=== PATIENT | female | born 1970 | race Caucasian/White ===

== ENCOUNTER 2022-06-23 12:47 | Emergency (ER) | payer BC ==
[2022-06-23 12:51] VITALS: PULSE 82; TEMP 98.5; BMI 23.3
[2022-06-23] MEDS ORDERED: ONDANSETRON 4 MG/2 ML VIAL IVPUSH ONE (13:35)
[2022-06-23] MEDS ORDERED: ACETAMINOPHEN 1000 MG/100 ML BAG IVPB ONE (13:35)
[2022-06-23] MEDS ORDERED: SODIUM CHLORIDE 1,000 ML IV STA (13:35)
[2022-06-23] MEDS ORDERED: ACETAMINOPHEN INJECTION 100 ML IVPB ONE (13:40)
[2022-06-23] MEDS ORDERED: ONDANSETRON 4 MG/2 ML VIAL ONE (13:40)
[2022-06-23] MEDS ORDERED: KETOROLAC TROMETHAMINE 30 MG/1 ML VIAL IM ONE ×2 (14:28→14:42)
[2022-06-23 14:29] LABS: BASO % 0.9 % (0-2.0); EOS % 0.9 % (0-4.5); HEMATOCRIT 38.9 % (32.4-45.2); HEMOGLOBIN 13.6 GM/dL (10.7-15.3); LYMPH % 26.1 % (8-40); MCH 30.3 pg (25.7-33.7); MEAN CELL VOLUME 86.4 fl (80-96); MEAN PLT VOLUME 9.8 fl (7.5-11.1); MONO % 6.8 % (3.8-10.2); NEUT % 65.3 % (42.8-82.8); PLATELET COUNT 254 10^3/uL (134-434); RDW 12.6 % (11.6-15.6); WHITE BLOOD COUNT 4.3 K/mm3 (4.0-10.0)
[2022-06-23] MEDS ORDERED: METOCLOPRAMIDE HCL INJECTION 10 MG/2 ML VIAL IVPUSH ONE (14:29)
[2022-06-23] MEDS ORDERED: KETOROLAC TROMETHAMINE 30 MG/1 ML VIAL IVPUSH ONE (14:33)
[2022-06-23 14:35] LABS: INR 0.94 (0.83-1.09); PROTHROMBIN TIME (PATIENT) 10.9 SEC (9.7-13.0)
[2022-06-23 14:38] LABS: ACTIVATED PTT 28.9 SECONDS (25.2-36.5)
[2022-06-23 14:40] LABS: CALCIUM 9.1 mg/dL (8.5-10.1)
[2022-06-23 14:41] LABS: ALBUMIN 3.9 g/dl (3.4-5.0); BLOOD UREA NITROGEN 10.8 mg/dL (7-18)
[2022-06-23 14:43] LABS: CREATININE 0.7 mg/dL (0.55-1.3)
[2022-06-23 14:45] LABS: BILIRUBIN,TOTAL 0.3 mg/dL (0.2-1); TOT PROT 7.4 g/dl (6.4-8.2)
[2022-06-23 15:32] VITALS: BP 110/60; RESP 18
== END 2022-06-23 15:46 | disposition home or self-care (01) ==
LOC: JER 12:47
PROC: 3E033NZ Introduction of Analgesics, Hypnotics, Sedatives into Peripheral Vein, Percutaneous Approach (ICD-10-PCS; principal; 2022-06-23)
PROC: 3E033GC Introduction of Other Therapeutic Substance into Peripheral Vein, Percutaneous Approach (ICD-10-PCS; 2022-06-23)
PROC: 3E0333Z Introduction of Anti-inflammatory into Peripheral Vein, Percutaneous Approach (ICD-10-PCS; 2022-06-23)
PROC: 3E0233Z Introduction of Anti-inflammatory into Muscle, Percutaneous Approach (ICD-10-PCS; 2022-06-23)
PROC: 3E0337Z Introduction of Electrolytic and Water Balance Substance into Peripheral Vein, Percutaneous Approach (ICD-10-PCS; 2022-06-23)
DX: S00.83XA Contusion of other part of head, initial encounter (principal); R11.0 Nausea; G44.89 Other headache syndrome; W10.9XXA Fall (on) (from) unspecified stairs and steps, initial encounter
CPT/HCPCS: 36415; 70450-TC; 80053; 84703; 85025; 85610; 85730; 99284-25